=== PATIENT | male | born 1965 ===

== ENCOUNTER 2023-07-10 08:36 | Day surgery (SDC) | payer OTHER ==
[~2023-07-10] VITALS: Ht 182.9 cm; Wt 97.3 kg
[~2023-07-10 08:36] MED LIST: LR 1,000 ML IV SCH; Ondansetron 4 MG/2 ML VIAL IV PRN
[2023-07-10] MEDS ORDERED: ALEVE 220MG220 MG PO (09:12)
[2023-07-10 09:35] VITALS: BP 137/99; PULSE 77; TEMP 97.1
[2023-07-10] MEDS ORDERED: Lidocaine PF 2% (20 MG/ML) 5 ML VIAL ONE (09:48)
[2023-07-10] MEDS ORDERED: Glycopyrrolate 0.2 MG/ML 1 ML VIAL ONE (10:11)
[2023-07-10 10:35] VITALS: BP 93/72; PULSE 87; TEMP 97.8
[2023-07-10 10:50] VITALS: BP 118/64; PULSE 82
[2023-07-10 11:05] VITALS: BP 134/56; PULSE 78
--- NOTE | 2023-07-10 17:04 | NUR ---
[id number]: PT TO RECOVERY BAY 1 FROM ENDO S/P EGD WITH BIOPSIES, COLONOSCOPY WITH POLYPECTOMY A&O, PLACED ON MONITOR, VSS ON RA RECEIVED REPORT AND ASSUMED CARE OF PT FROM YENNY GERARDO DTR/RIDE HOME IN PARKING LOT - WILL PICKUP AT FRONT DOOR WHEN READY FOR DC PROVIDED FOOD/FLUIDS, TOLERATING WELL DR RAYA IN TO SPEAK WITH PT S/P PROCEDURE PT HAS REMAINED A&O, NAD, VSS ON RA, TOLERATING PO, IS WITHOUT SIGNIFICANT COMPLAINT, WITH STEADY GAIT THRU OUT STAY IV D/C'D. D/C INSTRUCTIONS, ANY FOLLOW UP REVIEWED AND HANDED TO PT. ALL QUESTIONS AND CONCERNS ADDRESSED TO PT SATISFACTION. TAKEN TO EXIT VIA W/C WITH ALL BELONGINGS AND PAPERWORK IN HAND, ASSISTED INTO PASSENGER SEAT OF PO. SHANNENR TO DRIVE HOME.
== END 2023-07-10 11:25 | disposition home or self-care (01) ==
LOC: SDCO 08:36
DX: Z12.11 Encounter for screening for malignant neoplasm of colon (principal); D12.2 Benign neoplasm of ascending colon; D12.3 Benign neoplasm of transverse colon; K21.00 Gastro-esophageal reflux disease with esophagitis, without bleeding; K29.50 Unspecified chronic gastritis without bleeding; G47.33 Obstructive sleep apnea (adult) (pediatric); Z86.19 Personal history of other infectious and parasitic diseases; Z87.891 Personal history of nicotine dependence
CPT/HCPCS: J2704; J7120